=== PATIENT | male | born 1970 | race Caucasian/White ===

== ENCOUNTER 2023-07-01 08:34 | Outpatient (CLI) | payer BC, SELFPAY ==
--- NOTE | ~2023-07-01 | CT_ITS ---
Clinical Indication: Pulmonary embolus CT Scan of the Chest with Contrast: Technique: Contiguous sections were acquired throughout the chest after intravenous administration of 100 cc of Omnipaque 350. Dose reduction technique was used on this scan by utilizing automated expos ure control and iterative reconstruction technique. The dose-length product (DLP) was 928.69 mGy-cm. Findings: There is no evidence of any significant mediastinal, hilar or axillary lymphadenopathy. There is no f illing defect in the pulmonary arterial tree to suggest pulmonary embolus. There is no evidence of ao rtic dissection or aneurysm. There is no evidence of pleural or pericardial effusion. The lungs are clear, aside from calcified right upper lobe granuloma. Images through the upper abdomen reveal no abnormalities. Impression: No evidence of pulmonary embolus, aortic dissection, or aortic aneurysm. No significant pulmonary abnormality. Reviewed, dictated and finalized at [facility]. ESS MANAGEMENT DIRECTOR Impression: No evidence of pulmonary embolus, aortic dissection, or aortic aneurysm. No significant pulmonary abnormality.
== END 2023-07-01 08:35 | disposition home or self-care (01) ==
DX: R06.02 Shortness of breath (principal); I26.99 Other pulmonary embolism without acute cor pulmonale
CPT/HCPCS: 71275; Q9967

== ENCOUNTER 2023-07-24 09:29 | Emergency (ER) | payer BC, SELFPAY ==
[2023-07-24 09:59] VITALS: BP 134/83; PULSE 70; RESP 16; TEMP 36.9; O2SAT 100
--- NOTE | 2023-07-24 10:22 | ED.LOWEXIN ---
HPI - Extremity Injury (Lower) General Chief Complaint: Extremity Injury, Lower Stated Complaint: fall lower extremity Source: patient Mode of arrival: ambulatory Limitations: no limitations History of Present Illness HPI Narrative: 52 y/o male presented for c/o left knee pain and swelling after he fell yesterday on the ice. States he landed on all fours but left knee hurts most. Endorses abrasion to left knee. Denies decreased ROM to the knee, deformity, or bruising. Able to ambulate Rates pain /10. Has not taken anything for pain today. Hx arthritis and saddle PE's, on eliquis. Related Data Home Medications Medication Instructions Recorded Confirmed apixaban 5 mg tablet (Eliquis) mg 07/24/23 ergocalciferol (vitamin D2) 1,250 07/24/23 mcg (50,000 unit) capsule ferrous sulfate 325 mg (65 mg mg PO 07/24/23 iron) tablet,delayed release mirtazapine 30 mg tablet mg 07/24/23 sertraline 100 mg tablet mg 07/24/23 Allergies Allergy/AdvReac Type Severity Reaction Status Date / Time Penicillins Allergy Anaphylaxis Verified 07/24/23 09:58 Review of Systems Review of Systems: CONSTITUTIONAL: Denies body aches, fever, chills CARDIOVASCULAR: Denies chest pain, palpitations, or edema. RESPIRATORY: Denies cough or dyspnea. SKIN: Denies rash, itching MUSCULOSKELETAL: Denies back pain or neck pain. Reports left knee pain/swelling NEUROLOGIC: Denies headache, numbness, tingling, or weakness. All systems reviewed & are unremarkable except as noted in HPI and below PMFSH Past Medical History Medical History (Updated 07/24/23 @ 11:06 by Elena Mayo, CHRIS) Pulmonary embolism Comments At time of signature, I have reviewed and agree with nursing past medical, surgical, social and family history unless otherwise noted. Please see nursing chart for further information. There is no relevant family history pertinent to the presenting complaint Exam Narrative: GENERAL: Well-appearing CHEST: Speaks in full sentences. No respiratory distress. HEART: Regular rate and rhythm. Normal and equal peripheral pulses. EXTREMITIES: Left knee with mild swelling distal to patella, mild warmth. approx 1cm diameter dry abrasion noted, no bleeding/drainage. no bruising. Patient is able to bear weight and ambulate with some pain reported to the left knee. The knee is without obvious deformity. Patient is able to tolerate full flexion, extension, internal and external rotation. Mild tenderness to distal quads. No tenderness over the proximal fibular head. Distal motor and neurovascular status intact. BLE swelling 1+. SKIN: Warm, dry, no rash. pulse palpable and equal bilaterally, skin warm, dry, pink. Capillary refill less than 3 seconds. NEURO: Alert and oriented x3. PSYCH: Normal mood and affect Course Course Emergency Course: Patient is aware of diagnosis, understands and agrees to treatment plan. Anticipatory guidance given. Patient agrees to follow-up as directed and is aware of reasons to seek care at the emergency department. Portions of this record may have been created with voice recognition software Level of Care: Express Care Visit Vital Signs Vital signs: Vital Signs Temperature 98.4 F 07/24/23 09:59 Pulse Rate 70 07/24/23 09:59 Respiratory Rate 16 07/24/23 09:59 Blood Pressure 134/83 07/24/23 09:59 Pulse Oximetry 100 07/24/23 09:59 Oxygen Delivery Room Air 07/24/23 09:59 Temperature 98.4 F 07/24/23 09:59 Pulse Rate 70 07/24/23 09:59 Respiratory Rate 16 07/24/23 09:59 Blood Pressure 134/83 07/24/23 09:59 Pulse Oximetry 100 07/24/23 09:59 Oxygen Delivery Room Air 07/24/23 09:59 Reviewed MDM - Extremity Injury (Lower) MDM Narrative Medical decision making narrative: Discussed physical exam findings, imaging is not available at this location today, offered transfer to other site. They decline at this time. Pt and are planning to monitor and RICE
== END 2023-07-24 10:50 | disposition home or self-care (01) ==
PROVIDERS: Emergency Provider Nurse Practitioner Family
DX: M25.562 Pain in left knee (principal); M25.462 Effusion, left knee; Z86.711 Personal history of pulmonary embolism
CPT/HCPCS: 99212; G0463